=== PATIENT | female | born 1990 | race Caucasian/White ===

== ENCOUNTER 2016-08-07 13:37 | Emergency (ER) | payer BC ==
[2016-08-07 15:30] LABS: HEMOGLOBIN 13.6 gm/dl (12.3-15.3); RED BLOOD COUNT 4.37 M/UL (4.00-5.10); WHITE BLOOD COUNT 7.9 K/UL (4.5-11.0)
[2016-08-07 15:47] LABS: BUN/CREATININE RATIO 16 (0-10)
== END 2016-08-07 16:05 | disposition home or self-care (01) ==
LOC: ER1 13:37
PROVIDERS: Emergency Medicine
DX: O99.89 Other specified diseases and conditions complicating pregnancy, childbirth and the puerperium (principal); R07.9 Chest pain, unspecified; R10.2 Pelvic and perineal pain; O20.9 Hemorrhage in early pregnancy, unspecified; Z3A.00 Weeks of gestation of pregnancy not specified
CPT/HCPCS: 76817; 80053; 81001; 83690; 84702; 84703; 85025; 86850; 86900; 86901; 96372; 99284; J2790

== ENCOUNTER → 2016-11-10 | Outpatient (CLI) | payer BC | LOC: HEART 5 11-09 11:00 | DX: R00.2 Palpitations (principal) ==

== ENCOUNTER 2021-07-06 16:18 | Inpatient (IN) | payer BC ==
[~2021-07-06] VITALS: Ht 170.2 cm; Wt 97.5 kg
[2021-07-06 16:58] LABS: HEMOGLOBIN 12.3 gm/dl (12.3-15.3); RED BLOOD COUNT 3.95 M/UL (4.00-5.10); WHITE BLOOD COUNT 9.8 K/UL (4.5-11.0)
[2021-07-06] MEDS ORDERED: PRENATAL TABLE1 EAC1 PO (18:08)
[2021-07-06] MEDS ORDERED: PHENERGAN 12.12.5 M1 PO (18:09)
[2021-07-06] MEDS ORDERED: OMEPRAZOLE20 M2 PO (19:00)
[2021-07-07] MEDS ORDERED: IBUPROFEN600 MG PO (16:27)
[2021-07-07] MEDS ORDERED: DOCUSATE SODIU250 MG PO (16:27)
[2021-07-07] MEDS ORDERED: FEROSUL325 MG PO (16:27)
[2021-07-07] MEDS ORDERED: HYDROCODONE-AC1 EACH PO (16:27)
[2021-07-08 06:46] LABS: HEMOGLOBIN 9.5 gm/dl (12.3-15.3)
== END 2021-07-08 18:53 | disposition home or self-care (01) | DRG 788 ==
LOC: GENOP 16:18 → OB 16:43
PROVIDERS: Obstetrics & Gynecology; ADMIT Obstetrics & Gynecology
PROC: 4A1HXCZ Monitoring of Products of Conception, Cardiac Rate, External Approach (ICD-10-PCS; 2021-07-06)
PROC: 10907ZC Drainage of Amniotic Fluid, Therapeutic from Products of Conception, Via Natural or Artificial Opening (ICD-10-PCS; 2021-07-07)
PROC: 3E033VJ Introduction of Other Hormone into Peripheral Vein, Percutaneous Approach (ICD-10-PCS; 2021-07-07)
PROC: 10D00Z1 Extraction of Products of Conception, Low, Open Approach (ICD-10-PCS; principal; 2021-07-07 15:41)
DX: O76 Abnormality in fetal heart rate and rhythm complicating labor and delivery (principal); O66.40 Failed trial of labor, unspecified; Z3A.39 39 weeks gestation of pregnancy; Z37.0 Single live birth; Z20.822 Contact with and (suspected) exposure to COVID-19; Z88.0 Allergy status to penicillin; O69.81X0 Labor and delivery complicated by cord around neck, without compression, not applicable or unspecified
CPT/HCPCS: 36415; 81001; 82800; 85014; 85018; 85025; 85461; 86850; 86900; 86901; C9113; J1200; J1580; J1885; J2274; J2370; J2405; J2590; J2790; J7120; U0002

== ENCOUNTER 2021-07-15 18:10 | Observation (INO) | payer BC ==
[~2021-07-15 18:10] MED LIST: DOCUSATE SODIU250 MG PO; FEROSUL325 MG PO; HYDROCODONE-AC1 EACH PO; IBUPROFEN600 MG PO; OMEPRAZOLE20 M2 PO; PHENERGAN 12.12.5 M1 PO; PRENATAL TABLE1 EAC1 PO
[2021-07-15 22:18] LABS: HEMOGLOBIN 8.8 gm/dl (12.3-15.3); RED BLOOD COUNT 2.89 M/UL (4.00-5.10); WHITE BLOOD COUNT 9.1 K/UL (4.5-11.0)
[2021-07-15 23:15] LABS: BUN/CREATININE RATIO 20 (0-10)
[2021-07-17] MEDS ORDERED: PROCARDIA XL30 MG PO (20:32)
[2021-07-17] MEDS ORDERED: LABETALOL HCL200 MG PO (20:32)
== END 2021-07-17 21:50 | disposition home or self-care (01) ==
LOC: ER1 18:10 → CDU 20:52 → OB 20:52
PROVIDERS: ADMIT Obstetrics & Gynecology
DX: O14.95 Unspecified pre-eclampsia, complicating the puerperium (principal); R53.1 Weakness; Z20.822 Contact with and (suspected) exposure to COVID-19
CPT/HCPCS: 36415; 80053; 82247; 82248; 82565; 82570; 83735; 83880; 84156; 84450; 84460; 84550; 85025; 85379; 85384; 85610; 85730; 93005; G0378; J0360; J1940; J3475; J3480; J7120; U0002